=== PATIENT | male | born 1980 ===

== ENCOUNTER → 2024-01-05 09:39 | Outpatient (CLI) | payer OTHER, SELFPAY ==
--- NOTE | 2024-01-05 09:42 | DI.MRI.S_ITS ---
PROCEDURE: MR LUMBAR SPINE WO CON INDICATIONS: Radiculopathy, lumbar region TECHNIQUE: Noncontrast sagittal T1 spin echo and T2 fast echo, sagittal STIR, and T2 fast spin echo through the lumbar spine. In cases with scoliosis, additional coronal T2 fast spin echo may be performed. COMPARISON: None. FINDINGS: Image quality: Excellent. Alignment and Curvature: There is normal bony alignment. Bone Marrow: Marrow is of normal overall signal. No acute vertebral body compression fractures. Spinal Cord: Conus medullaris terminates at the L1 level. Visualized cord demonstrates normal signal and size. Paraspinous Soft Tissues: No paravertebral masses. T12-L1: No significant neuroforaminal or spinal canal stenosis. L1-L2: No significant neuroforaminal or spinal canal stenosis. L2-L3: Mild bilateral facet arthropathy. No significant neuroforaminal or spinal canal stenosis. L3-L4: Minimal loss of disc signal intensity. Mild-moderate bilateral facet arthropathy. Eccentric to the right disc bulge. No significant spinal canal stenosis. There is mild-moderate left and moderate-severe right bilateral neuroforaminal stenosis. L4-L5: Minimal loss of disc signal intensity. Moderate bilateral facet arthropathy more pronounced on the left. Symmetric disc bulge. Moderate bilateral neuroforaminal stenosis without significant spinal canal stenosis. L5-S1: Minimal bilateral facet arthropathy. No significant neuroforaminal or spinal canal stenosis. IMPRESSION: Multilevel, multifactorial lumbar spondylosis most severe at L3-4. Please see above for details by vertebral body level. No acute abnormalities identified. Dictated by: Harjit Pacheco M.D. on 01/06/2024 at 9:34 Approved by: Harjit Pacheco M.D. on 01/06/2024 at 9:40
== END ==
PROVIDERS: Referring Provider Nurse Practitioner Family; Visit Provider Nurse Practitioner Family
DX: M47.26 Other spondylosis with radiculopathy, lumbar region; M54.9 Dorsalgia, unspecified
CPT/HCPCS: 72148